=== PATIENT | female | born 1970 | race Hispanic/Latino ===

== ENCOUNTER 2018-05-30 10:18 | Emergency (ER) | payer BC, SELFPAY ==
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
== END 2018-05-30 11:50 | disposition home or self-care (01) ==
LOC: SCSER 10:18
DX: S93.401A Sprain of unspecified ligament of right ankle, initial encounter (principal); E03.9 Hypothyroidism, unspecified; I10 Essential (primary) hypertension; Z79.899 Other long term (current) drug therapy; W01.0XXA Fall on same level from slipping, tripping and stumbling without subsequent striking against object, initial encounter
CPT/HCPCS: 27760

== ENCOUNTER 2019-08-15 12:24 | Emergency (ER) | payer SELFPAY ==
[2019-08-15] MEDS ORDERED: Prochlorperazine 10 MG/2 ML VIAL ONE (12:43)
[2019-08-15] MEDS ORDERED: diphenhydrAMINE 50 MG/ML VIAL ONE (12:43)
[2019-08-15] MEDS ORDERED: Acetaminophen 500 MG TAB ONE (13:03)
--- NOTE | 2019-08-15 13:09 | CT ---
EXAM: CT brain without contrast HISTORY: Headache COMPARISON: 09/30/2010 TECHNIQUE: Multiple contiguous axial images were obtained and a CT of the brain without contrast. FINDINGS: The brain is normal in morphology and attenuation without focal lesions or confluent areas of infarction. There is no evidence of hydrocephalus, intracranial hemorrhage, or extra-axial fluid collection. The calvarium and overlying soft tissues are unremarkable. The visualized paranasal sinuses and masto id air cells are well aerated. IMPRESSION: No evidence of acute intracranial abnormality
[2019-08-15] MEDS ORDERED: Ketorolac Tromethamine 30 MG/ML VIAL ONE (13:26)
== END 2019-08-15 13:52 | disposition home or self-care (01) ==
LOC: SCSER 12:24
DX: R51 Headache (principal); E03.9 Hypothyroidism, unspecified; I10 Essential (primary) hypertension; Z87.442 Personal history of urinary calculi; Z79.891 Long term (current) use of opiate analgesic; Z79.899 Other long term (current) drug therapy
CPT/HCPCS: 70450; 96365; 96375; J0780; J1200; J1885

== ENCOUNTER 2019-11-21 14:52 | Emergency (ER) | payer OTHER ==
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
== END 2019-11-21 18:33 | disposition home or self-care (01) ==
LOC: ERS 14:52
DX: S13.4XXA Sprain of ligaments of cervical spine, initial encounter (principal); S16.1XXA Strain of muscle, fascia and tendon at neck level, initial encounter; F41.9 Anxiety disorder, unspecified; F32.9 Major depressive disorder, single episode, unspecified; I10 Essential (primary) hypertension; E03.9 Hypothyroidism, unspecified; Z87.42 Personal history of other diseases of the female genital tract; Z79.891 Long term (current) use of opiate analgesic; Z79.899 Other long term (current) drug therapy; V43.62XA Car passenger injured in collision with other type car in traffic accident, initial encounter
CPT/HCPCS: 72040; L0120

== ENCOUNTER 2019-11-29 08:06 | Outpatient (CLI) | payer OTHER ==
[2019-11-29 17:35] LABS: Hemoglobin 12.9 g/dL (12.0-16.0); Mean Corpuscular HGB CONC 30.8 g/dL (32.0-36.0); Mean Corpuscular Hemoglobin 27.9 pg (27.0-31.0); Mean Corpuscular Volume 90.7 fL (78.0-98.0); Mean Platelet Volume 10.6 fL (7.4-10.4); Platelet Count 270 thou/uL (130-400); RBC Distribution Width 13.3 % (11.5-14.5); Red Blood Cell (RBC) Count 4.63 mill/uL (4.20-5.40); White Blood Cell (WBC) Count 8.2 thou/uL (4.8-10.8)
[2019-11-29 17:38] LABS: Bacteria/HPF 2+ HPF (None Seen); Bilirubin Negative (Negative); Blood, Urine Negative (Negative); Clarity Turbid (Clear); Glucose, Urine (Dipstick) Normal (Negative); Leukocyte 75 Leu/uL (Negative); Nitrite Negative (Negative); Protein, Urine (Dipstick) 50 mg/dL (Neg-Trace); RBC/HPF 0-3 HPF (0-3); Urobilinogen Normal mg/dL (Less than 2); WBC/HPF 21-50 HPF (0-3)
[2019-11-29 17:50] LABS: BHCG - Serum Negative (NEGATIVE); Pregs Control Background? CLEAR/WHITE (CLR/WHITE); Pregs Control Bar Appear? YES (CONTROL BAR)
[2019-11-29 17:55] LABS: Anion Gap 12 mmol/L (10-20); BUN (Urea Nitrogen) 13 mg/dL (7.0-18.7); Calc. Creatinine Clearance 0 mL/min (70-130); Calcium 9.1 mg/dL (7.8-10.44); Carbon Dioxide 26 mmol/L (22-29); Chloride 102 mmol/L (98-107); Estimated GFR-MDRD 86; Glucose 81 mg/dL (70-105); Potassium 3.6 mmol/L (3.5-5.1); Sodium 136 mmol/L (136-145)
== END 2019-11-29 08:07 | disposition home or self-care (01) ==
LOC: LABBT 08:06
PROVIDERS: ATTEND Urology
DX: Z01.818 Encounter for other preprocedural examination (principal); N20.0 Calculus of kidney
CPT/HCPCS: 80048; 81001; 84703; 85027; 87086; 93005; 93010

== ENCOUNTER 2019-12-05 07:42 | Day surgery (SDC) | payer OTHER ==
[2019-11-29 16:10] VITALS: BMI 32.8
[2019-12-05] MEDS ORDERED: Levofloxacin 500 mg/D5W 100 ml Premix Bag ONE (09:04)
[2019-12-05] MEDS ORDERED: Fentanyl 100 MCG/2 ML VIAL ONE (11:49)
[2019-12-05] MEDS ORDERED: Iothalamate Meglumine 60% 50 ML VIAL FS ONE (11:58)
--- NOTE | 2019-12-05 12:54 | RAD ---
EXAM: Retrograde IVP HISTORY: Right-sided kidney stones COMPARISON: 03/27/2015 FINDINGS/IMPRESSION: Limited intraoperative fluoroscopic views of the retrograde IVP were submitted f or interpretation. There is mild hydronephrosis. A ureteral stent is eventually placed in good position within the right renal collecting system. No obvious filling defects are seen.
[2019-12-05] MEDS ORDERED: Ketorolac Tromethamine 30 MG/ML VIAL ONE (12:58)
[2019-12-05] MEDS ORDERED: Oxybutynin 5 MG TAB ONE (12:58)
[2019-12-05] MEDS ORDERED: Phenazopyridine HCl 97.5 MG TABLET ONE ×2 (12:58→12:59)
[2019-12-05] MEDS ORDERED: Lidocaine 1% PF 5 ML VIAL ONE (13:28)
[2019-12-05] MEDS ORDERED: HYDROcodone/Acetaminophen 5/325 mg Tablet ONE (13:28)
[2019-12-05] MEDS ORDERED: Ondansetron PF 4 MG/2 ML Vial ONE (13:28)
[2019-12-05] MEDS ORDERED: PROPOFOL 200 MG/20 ML VIAL ONE (13:28)
[2019-12-05] MEDS ORDERED: Dexamethasone 20 MG/5 ML VIAL ONE (13:28)
--- NOTE | 2019-12-05 15:20 | OP ---
DATE OF PROCEDURE: 12/05/2019 PREOPERATIVE DIAGNOSIS: Right ureteral stone. POSTOPERATIVE DIAGNOSIS: Right renal stones. ANESTHESIA: General. COMPLICATIONS: None. SPECIMEN: Right renal stone fragments. PROCEDURES PERFORMED: Right ureteroscopy with laser lithotripsy, basket extraction, 6 x 24 double-J ureteral stent placement, and retrograde pyelogram. DESCRIPTION OF PROCEDURE: After informed consent, the patient was taken to the operating room and transferred to the table under her own power. Anesthesia was established. A time-out was performed showing the correct patient, site, and procedure. Preoperative antibiotics were administered. She was prepped and draped in the supine position. I began by inserting the semi-rigid ureteroscope and placing a wire into the right ureter, which was negotiated up to the level of the renal pelvis under fluoroscopic guidance. The scope was withdrawn and re-inserted alongside the wire into the distal ureter, and a retrograde pyelogram was performed showing good filling of the ureter with filling defect at the UPJ with mild hydronephrosis above. The scope was passed up to this level, and a stone was identified at the UPJ. The 200-micron laser fiber was utilized to fragment the stone into several small pieces, which were then removed with the basket. Under fluoroscopy, I could tell that there were other stones in the lower pole calices, and so, the semi-rigid scope was removed, and an 11, 25 cm Access sheath was placed over the wire into the proximal ureter under fluoroscopic guidance. The flexible ureteroscope was passed through this into the renal pelvis, which was examined, and several stones were found in the lower pole calices. The 200-micron laser fiber was utilized to fragment all these stones into small pieces. All clinically significant stone fragments were removed with the basket and passed off as specimen. The collecting system was then re-examined noting no further stone fragments. The renal pelvis was opacified with contrast, and the wire was replaced, after which the scope and Access sheath were removed. A 6 x 24 double-J ureteral stent was positioned over the wire with a curl in the kidney and curl in the bladder under fluoroscopic guidance. The bladder was then drained. The patient was awoken from anesthesia, transferred back to her hospital bed, and taken to PACU in stable condition, where she will be discharged home upon recovery. Job ID: [id number]
== END 2019-12-05 14:30 | disposition home or self-care (01) ==
LOC: SDC 07:42
PROVIDERS: ATTEND Urology
PROC: 0T768DZ Dilation of Right Ureter with Intraluminal Device, Via Natural or Artificial Opening Endoscopic (ICD-10-PCS; principal; 2019-12-05)
PROC: 0TF38ZZ Fragmentation in Right Kidney Pelvis, Via Natural or Artificial Opening Endoscopic (ICD-10-PCS; principal; 2019-12-05)
DX: N13.2 Hydronephrosis with renal and ureteral calculous obstruction (principal); E05.00 Thyrotoxicosis with diffuse goiter without thyrotoxic crisis or storm; E03.9 Hypothyroidism, unspecified; M17.10 Unilateral primary osteoarthritis, unspecified knee; Z79.899 Other long term (current) drug therapy
CPT/HCPCS: 74420; 82365; 88300; C1769; J1100; J1885; J1956; J2001; J2405; J2704; J3010